=== PATIENT | female | born 1990 | race American Indian/Alaskan Native ===

== ENCOUNTER 2016-06-22 00:54 | Emergency (ER) | payer MEDICAID, OTHER ==
[2016-06-22 12:58] LABS: Basophils % (Auto) 0.9 % (0.0-1.8); Eosinophils % (Auto) 0.6 % (0.0-4.3); Hematocrit 38.9 % (30.3-42.9); Hemoglobin 12.8 gm/dl (10.1-14.3); Mean Corpuscular HGB Conc 33 % (30-34); Mean Corpuscular Hemoglobin 28 pg (28-32); Mean Corpuscular Volume 85 fl (79-97); Platelet Count 326 K/mm3 (140-440); Red Blood Count 4.58 M/mm3 (3.65-5.03); Red Cell Distribution Width 14.4 % (13.2-15.2); White Blood Count 5.9 K/mm3 (4.5-11.0)
--- NOTE | 2016-06-22 13:50 | Emergency Department Report ---
ED Female HPI - General Chief complaint: Urogenital-Female Stated complaint: VAG ODOR Time Seen by Provider: 06/22/16 12:50 Source: patient Mode of arrival: Ambulatory Limitations: No Limitations - History of Present Illness Initial comments: Patient presents with vaginal odor. She states she had an on 05/20/16, she states she bled for approximately 1.5 weeks and then the odor began. She denies fever, chills, nausea, vomiting, abdominal pain. She states she has not had sexual intercourse since the . She does admit to mild bleeding yesterday, but none today. She is due to f/u with the clinic next week. Complaint: other (vaginal odor) -: Gradual Severity scale (0 -10): 0 Consistency: constant Improves with: none Worsens with: none Are you Now?: No Last Menstrual Period: 06/21/16 EDC: 03/28/17 Associated Symptoms: vaginal bleeding. denies: vaginal discharge, abdominal pain, nausea/vomiting, fever/chills, headaches, loss of appetite, dysuria, hematuria - Related Data Sexually active: No Previous Rx's Medication Instructions Recorded Last Taken Type Cetirizine HCl [ZyrTEC] 10 mg PO DAILY #30 capsule 04/20/16 Unknown Rx Ibuprofen [Motrin 800 MG tab] 800 mg PO Q8HR PRN #30 tablet 04/20/16 Unknown Rx Nitrofurantoin [place]/M-Cryst 100 mg PO Q12HR #14 capsule 04/20/16 Unknown Rx [Macrobid CAP] metroNIDAZOLE [Flagyl] 500 mg PO Q12HR #10 tab 06/22/16 Unknown Rx Allergies Allergy/AdvReac Type Severity Reaction Status Date / Time No Known Allergies Allergy Verified 06/22/16 01:01 ED Review of Systems ROS: Stated complaint: VAG ODOR Other details as noted in HPI Constitutional: denies: chills, fever ENT: denies: ear pain, throat pain Respiratory: denies: cough, shortness of breath, wheezing Cardiovascular: denies: chest pain, palpitations Gastrointestinal: denies: abdominal pain, nausea, diarrhea Genitourinary: as per HPI Musculoskeletal: denies: back pain, joint swelling, arthralgia Skin: denies: rash, lesions Neurological: denies: headache, weakness, paresthesias ED Past Medical Hx - Past Medical History Previous Medical History?: No - Surgical History Past Surgical History?: Yes Additional Surgical History: on 05/20/16 - Social History Smoking Status: Never Smoker - Medications Home Medications: Home Medications Medication Instructions Recorded Confirmed Last Taken Type Cetirizine HCl [ZyrTEC] 10 mg PO DAILY #30 capsule 04/20/16 Unknown Rx Ibuprofen [Motrin 800 MG tab] 800 mg PO Q8HR PRN #30 tablet 04/20/16 Unknown Rx Nitrofurantoin [place]/M-Cryst 100 mg PO Q12HR #14 capsule 04/20/16 Unknown Rx [Macrobid CAP] metroNIDAZOLE [Flagyl] 500 mg PO Q12HR #10 tab 06/22/16 Unknown Rx ED Physical Exam - General Limitations: No Limitations General appearance: alert, in no apparent distress - Head Head exam: Present: atraumatic, normocephalic - Respiratory Respiratory exam: Present: normal lung sounds bilaterally. Absent: respiratory distress - Cardiovascular Cardiovascular Exam: Present: regular rate, normal rhythm. Absent: systolic murmur, diastolic murmur, rubs, gallop - GI/Abdominal GI/Abdominal exam: Present: soft, normal bowel sounds. Absent: distended, tenderness, guarding, rebound, rigid - External exam: Present: normal external exam. Absent: erythema, swelling Speculum exam: Present: normal speculum exam, vaginal bleeding. Absent: vaginal discharge, cervical discharge, foreign body, tissue Bi-manual exam: Present: normal bi-manual exam, other (I do not appreciate an odor at this time). Absent: cervical motion tendernes, adnexal tenderness, adnexal mass, uterine enlargement, uterine tenderness - Neurological Exam Neurological exam: Present: alert, oriented X3 - Psychiatric Psychiatric exam: Present: normal affect, normal mood - Skin Skin exam: Present: warm, dry, intact, normal color. Absent: rash ED Course Vital Signs 06/22/16 00:58 Temperature 98.2 F Pulse Rate 89 Respiratory 18 Rate Blood Pressure 124/75 O2 Sat by Pulse 97 Oximetry - Reevaluation(s) Reevaluation #1: 06/22/16 13:[address] Faria about this patient, he states the +hcg of 8 is normal for this amount of time out of an , he states if there were left- over product pt would likely be septic, and her VS are all wnl. He states do not need US at this time. ED Medical Decision Making - Lab Data Result diagrams: 06/22/16 12:34 - Medical Decision Making Patient presents with vaginal odor, her PE is wnl, no cervical wall tenderness, abdominal pain, WBC wnl, afebrile, wet prep wnl. Will advise to keep her appt with clinic next week and refer her to [facility] In[facility]. I will give her empiric Flagyl for possible BV. Advise her to return to Ed if abdominal pain, fever, chills, nausea, vomiting. - Differential Diagnosis BV, std, Critical Care Time: No Critical care attestation.: If time is entered above; I have spent that time in minutes in the direct care of this critically ill patient, excluding procedure time. ED Disposition Clinical Impression: Vaginal odor Disposition: DISCHARGED TO HOME OR SELFCARE Is pt being admited?: No Does the pt Need Aspirin: No Condition: Stable Instructions: Sexually Transmitted Diseases (ED), Safe Sex (ED) Additional Instructions: Follow up with CELLULAR BIOLOGIST as discussed. Advise to return to Ed if abdominal pain, fever, chills, nausea, vomiting. Patient states understanding. Prescriptions: metroNIDAZOLE [Flagyl] 500 mg PO Q12HR #10 tab Referrals: PRIMARY CARE, [Primary Care Provider] - 3-5 Days NAGI BHAKTA MD [Staff Physician] - 3-5 Days CARLOS BURRELL MD [Staff Physician] - 3-5 Days [facility] [Outside] - 3-5 Days Forms: Work/School Release Form(ED) Time of Disposition: 14:40
[2016-06-22 14:14] LABS: Bilirubin,Urine NEG (Negative); Blood,Urine MOD (Negative); Ketones,Urine NEG (Negative); Leukocyte Esterase,Urine NEG (Negative); Mucus,Urine 3+ /HPF; Nitrite,Urine NEG (Negative); WBC,Urine < 1.0 /HPF (0.0-6.0)
[2016-06-22 15:22] VITALS: BP 121/72
== END 2016-06-22 15:22 | disposition home or self-care (01) ==
LOC: ED 00:54
DX: N89.8 Other specified noninflammatory disorders of vagina (principal)
CPT/HCPCS: 36415; 81001; 84702; 85025; 87210; 87591; 99284

== ENCOUNTER 2020-11-02 16:18 | Emergency (ER) | payer SELFPAY ==
--- NOTE | 2020-11-02 18:04 | Emergency Department Report ---
Chief Complaint: Laceration/Recheck/Suture Stated Complaint: SUTURE REMOVAL Time Seen by Provider: 11/02/20 17:49 - HPI History of Present Illness: Patient comes in for sutures removal for her plastic surgery. From [place]. Patient has no other complaints. - Exam Vital Signs: Vital Signs 11/02/20 16:22 Temperature 98.5 F Pulse Rate 92 H Respiratory 18 Rate Blood Pressure 126/85 [Left] O2 Sat by Pulse 97 Oximetry MSE screening note: Focused history and physical exam performed. Due to findings the following was ordered: Patient comes in for sutures removal for her plastic surgery. From [place]. Patient has no other complaints. Discussed with patient that we are not able to remove other doctor's sutures or drains. ED Disposition for MSE Condition: Stable
== END 2020-11-02 18:11 | disposition left against medical advice (07) ==
LOC: ED 16:18

== ENCOUNTER 2022-01-24 10:03 | Emergency (ER) | payer OTHER ==
[2022-01-24 11:29] VITALS: BP 122/82
--- NOTE | 2022-01-24 11:36 | Emergency Department Report ---
Stated Complaint: STOMACH PAIN - HPI History of Present Illness: pt reports light headiness x 2 days and lower back pain with urinary freq. right lower abdominal pain. with intermitted nausea , no vomiting MSE screening note: Focused history and physical exam performed. Due to findings the following was ordered: ED Disposition for MSE Condition: Stable
[2022-01-24 12:58] LABS: Alanine Aminotransferase 13 units/L (7-56); Albumin 4.4 g/dL (3.9-5); BUN/Creatinine Ratio 16; Blood Urea Nitrogen 13 mg/dL (7-17); Calcium 9.2 mg/dL (8.4-10.2); Hemolysis Index 13
[2022-01-24] MEDS ORDERED: ONDANSETRON 4 MG/2 ML INJ IV ONE (13:14)
[2022-01-24] MEDS ORDERED: FAMOTIDINE 20 MG/2 ML INJ IV ONE (13:14)
[2022-01-24] MEDS ORDERED: SODIUM CHLORIDE 0.9% 1000 ML 1,000 ML IV ONE (13:14)
--- NOTE | 2022-01-24 16:41 | Emergency Department Report ---
ED Abdominal Pain HPI - General Chief Complaint: Abdominal Pain Stated Complaint: STOMACH PAIN Time Seen by Provider: 01/24/22 12:54 Source: patient Mode of arrival: Ambulatory Limitations: No Limitations - History of Present Illness Initial Comments: 31-year-old female presenting with right lower quadrant abdominal pain, urinary frequency which has been going on for over 2 weeks, however his pain got very sharp and more severe in the last 2 days. States she is also been experiencing some vomiting which is worse in the morning and improves as the day goes by. Symptoms associated with feeling dizzy and lightheadedness, patient suspects she might be becauser she did miss her period and has not had a menstrual period since December 07, 2021. Pain is worsened by nothing and improves with nothing, no vaginal discharge, no upper abdominal pain, no chest pain, no shortness of breath, no flank pain, no hematuria, no weakness, no [place], no sick contacts or recent travel. -: Gradual Location: RLQ Radiation: none Severity: moderate Quality: cramping, sharp Consistency: intermittent Improves With: nothing Worsens With: nothing - Related Data Previous Rx's Medication Instructions Recorded Last Taken Type Cetirizine HCl [ZyrTEC] 10 mg PO DAILY #30 capsule 04/20/16 Unknown Rx Ibuprofen [Motrin 800 MG tab] 800 mg PO Q8HR PRN #30 tablet 04/20/16 Unknown Rx metroNIDAZOLE [Flagyl] 500 mg PO Q12HR #10 tab 06/22/16 Unknown Rx Naproxen [Naprosyn] 500 mg PO BID PRN #20 tablet 01/24/22 Unknown Rx Promethazine [Phenergan] 25 mg PO Q6HR PRN #20 tab 01/24/22 Unknown Rx cephALEXin [Keflex] 500 mg PO Q12HR 7 Days #14 cap 01/24/22 Unknown Rx Allergies Allergy/AdvReac Type Severity Reaction Status Date / Time No Known Allergies Allergy Verified 11/02/20 16:22 ED Review of Systems ROS: Stated complaint: STOMACH PAIN Other details as noted in HPI Constitutional: no symptoms reported Eyes: as per HPI ENT: denies: ear pain, throat pain Respiratory: denies: see HPI, shortness of breath Cardiovascular: denies: chest pain, palpitations Gastrointestinal: abdominal pain, nausea, vomiting. denies: diarrhea Genitourinary: urgency. denies: hematuria, discharge Musculoskeletal: denies: back pain Skin: denies: rash Neurological: other. denies: headache, weakness Psychiatric: denies: anxiety, depression ED Past Medical Hx - Past Medical History Previous Medical History?: No - Surgical History Past Surgical History?: No Additional Surgical History: on 05/20/16 - Social History Smoking Status: Never Smoker - Medications Home Medications: Home Medications Medication Instructions Recorded Confirmed Last Taken Type Cetirizine HCl [ZyrTEC] 10 mg PO DAILY #30 capsule 04/20/16 Unknown Rx Ibuprofen [Motrin 800 MG tab] 800 mg PO Q8HR PRN #30 tablet 04/20/16 Unknown Rx metroNIDAZOLE [Flagyl] 500 mg PO Q12HR #10 tab 06/22/16 Unknown Rx Naproxen [Naprosyn] 500 mg PO BID PRN #20 tablet 01/24/22 Unknown Rx Promethazine [Phenergan] 25 mg PO Q6HR PRN #20 tab 01/24/22 Unknown Rx cephALEXin [Keflex] 500 mg PO Q12HR 7 Days #14 cap 01/24/22 Unknown Rx ED Physical Exam - General Limitations: No Limitations General appearance: alert, in no apparent distress - Head Head exam: Present: atraumatic - Eye Eye exam: Present: normal appearance, PERRL Pupils: Present: normal accommodation - ENT ENT exam: Present: normal exam, normal orophraynx - Neck Neck exam: Present: normal inspection. Absent: tenderness - Respiratory Respiratory exam: Present: normal lung sounds bilaterally. Absent: respiratory distress - Cardiovascular Cardiovascular Exam: Present: regular rate, normal rhythm - GI/Abdominal GI/Abdominal exam: Present: soft, tenderness (Mildly tender right lowerSuprapubic area). Absent: distended, guarding, rebound - Rectal Rectal exam: Present: deferred - Extremities Exam Extremities exam: Present: normal inspection, full ROM, normal capillary refill. Absent: tenderness - Back Exam Back exam: Present: normal inspection, full ROM, tenderness. Absent: CVA tende rness (R), CVA tenderness (L) - Neurological Exam Neurological exam: Present: alert, oriented X3, CN II-XII intact, normal gait - Psychiatric Psychiatric exam: Present: normal affect, normal mood - Skin Skin exam: Present: warm, dry, intact, normal color ED Course Vital Signs 01/24/22 11:22 Temperature 99 F Pulse Rate 75 Respiratory 18 Rate Blood Pressure 122/82 [Left] O2 Sat by Pulse 99 Oximetry - Reevaluation(s) Reevaluation #1: 01/24/22 1500 No CBC results lab services notified 1630-still no CBC or urinalysis results lab notify ED Medical Decision Making - Lab Data Result diagrams: 01/24/22 11:44 Laboratory Results - last 24 hr 01/24/22 01/24/22 01/24/22 11:44 11:44 11:51 WBC 4.3 L RBC 4.32 Hgb 12.1 Hct 37.9 MCV 88 MCH 28 MCHC 32 RDW 15.3 H Plt Count 329 Lymph % (Auto) 35.1 H [place] % (Auto) 8.8 H Eos % (Auto) 1.0 Baso % (Auto) 1.1 Lymph # (Auto) 1.5 [place] # (Auto) 0.4 Eos # (Auto) 0.0 Baso # (Auto) 0.0 Seg Neutrophils % 54.0 Seg Neutrophils # 2.3 Sodium 136 L Potassium 4.1 Chloride 102.3 Carbon Dioxide 23 Anion Gap 15 BUN 13 Creatinine 0.8 Estimated GFR > 60 BUN/Creatinine Ratio 16 Glucose 94 Calcium 9.2 Total Bilirubin 0.30 AST 14 ALT 13 Alkaline Phosphatase 37 Total Protein 6.9 Albumin 4.4 Albumin/Globulin Ratio 1.8 HCG, Quant < 1 Urine Color Urine Turbidity Specific [place] (Man) Ur Protein (Man) Ur Ketones (Man) Ur Nitrite (Man) Ur Reducing Substances Urine Bilirubin (Man) Urine Ictotest Leukocyte Esterase (Man) Urine WBC (Auto) Urine RBC (Auto) U Epithel Cells (Auto) Urine Bacteria (Auto) Urine RBC (Manual) Urine Mucus Urine Yeast (Budding) 01/24/22 Unknown WBC RBC Hgb Hct MCV MCH MCHC RDW Plt Count Lymph % (Auto) [place] % (Auto) Eos % (Auto) Baso % (Auto) Lymph # (Auto) [place] # (Auto) Eos # (Auto) Baso # (Auto) Seg Neutrophils % Seg Neutrophils # Sodium Potassium Chloride Carbon Dioxide Anion Gap BUN Creatinine Estimated GFR BUN/Creatinine Ratio Glucose Calcium Total Bilirubin AST ALT Alkaline Phosphatase Total Protein Albumin Albumin/Globulin Ratio HCG, Quant Urine Color Yellow Urine Turbidity Turbid Specific [place] (Man) 1.020 Ur Protein (Man) 2+ Ur Ketones (Man) Negative Ur Nitrite (Man) Positive Ur Reducing Substances Not Reportable Urine Bilirubin (Man) Negative Urine Ictotest Not Reportable Leukocyte Esterase (Man) Trace Urine WBC (Auto) 25.0 H Urine RBC (Auto) 111.0 U Epithel Cells (Auto) 17.0 H Urine Bacteria (Auto) 1+ Urine RBC (Manual) Trace Urine Mucus 3+ Urine Yeast (Budding) 1+ - EKG Data -: EKG Interpreted by Me (Normal sinus rhythm at 74, normal interval, normal rate and rhythm) EKG shows normal: sinus rhythm Rate: normal - Medical Decision Making Differential diagnosis includes appendicitis, UTI, , ectopic , blighted ovum, endometriosis, endometritis, PID, STI, urethritis, diverticulitis diverticulosis, pyelonephritis, Symptoms addressed during ED course, with marked improvement, able to tolerate oral intake without vomiting, vital signs are stable, ambulating steadily without guarding, however at 1642 still no CBC urinalysis result. Urinalysis is contaminated with epithelial cells but positive for nitrates WBCs RBCs leukocytes we will treat. test negative I put her on Keflex this time around since she has been on Macrobid in the past, pain medications, antiemetics, and follow-up with OB. Patient remained stable nontoxic-appearing, afebrile, ambulating steadily without assistance. Gone over ED findings with patient as well as plan for follow-up. Also discussed return precautions with patient, all questions and concerns addressed. Patient is stable to be discharged follow-up outpatient. Audio voice dictation device used, hence the chart might contain some dictation errors, mispronunciations, wrong spelling and wrong verbiage. Critical care attestation.: If time is entered above; I have spent that time in minutes in the direct care of this critically ill patient, excluding procedure time. ED Disposition Clinical Impression: Abdominal pain, Acute UTI Disposition: HOME / SELF CARE / HOMELESS Is pt being admited?: No Does the pt Need Aspirin: No Condition: Stable Instructions: Abdominal Pain (ED), Abdominal Pain, Adult, Urinary Tract Infection, Adult, [id number] Prescriptions: cephALEXin [Keflex] 500 mg PO Q12HR 7 Days #14 cap Naproxen [Naprosyn] 500 mg PO BID PRN #20 tablet PRN Reason: Pain , Severe (7-10) Promethazine [Phenergan] 25 mg PO Q6HR PRN #20 tab PRN Reason: Nausea Referrals: NOREEN RAMSEY MD [Primary Care Provider] - 3-5 Days Forms: Work/School Release Form(ED)
[2022-01-24 17:58] LABS: Bacteria,Urine 1+ /HPF (Negative); Mucus,Urine 3+ /HPF
[2022-01-24 18:59] LABS: Basophils % (Auto) 1.1 % (0.0-1.8); Hematocrit 37.9 % (30.3-42.9); Hemoglobin 12.1 gm/dl (10.1-14.3); Lymphocytes # (Auto) 1.5 K/mm3 (1.2-5.4); Lymphocytes % (Auto) 35.1 % (13.4-35.0); Mean Corpuscular HGB Conc 32 % (30-34); Mean Corpuscular Volume 88 fl (79-97); Monocytes # (Auto) 0.4 K/mm3 (0.0-0.8); Monocytes % (Auto) 8.8 % (0.0-7.3); Platelet Count 329 K/mm3 (140-440); Red Blood Count 4.32 M/mm3 (3.65-5.03); Red Cell Distribution Width 15.3 % (13.2-15.2)
[2022-01-24 19:15] LABS: Color,Urine Yellow (Yellow)
--- NOTE | 2022-01-25 09:31 | Electrocardiograph Report ---
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
== END 2022-01-24 17:30 | disposition home or self-care (01) ==
LOC: ED 10:03
DX: R10.9 Unspecified abdominal pain (principal); N39.0 Urinary tract infection, site not specified
CPT/HCPCS: 36415; 80053; 81001; 84702; 85025; 87086; 93005; 96361; 96374; 96375; 99284; J2405; J3490; J7030; 99283